=== PATIENT | female | born 1925 | race Caucasian/White ===

== ENCOUNTER → 2017-02-04 | Outpatient (CLI) | payer MEDICARE, BC ==
[~2017-02-04] MED LIST: ACETAMINOPHEN PO; AMIODARONE HCL200 MG PO; AMIODARONE PO; ASPIRIN; ASPIRIN PO; ATENOLOL; ATENOLOL PO; ATIVAN; ATIVAN PO; CALCIUM 600 + D; CALCIUM PO; COZAAR100 MG PO; GLYCOLAX PO; HYDROCHLOROTHIA25 MG PO; HYZAAR 100-25 T1 TAB; HYZAAR 100-25 T1 TAB PO; K-DUR20 ME2 PO; LASIX PO; LEVOTHROID25 MCG PO; LEVOTHYROXINE25 MCG PO; LOPRESSOR PO; LORAZEPAM1 MG PO; METOPROLOL SUCC50 MG PO; METOPROLOL TAR25 MG PO; MIRALAX17 GM PO; MOBIC PO; MULTI-VITAMIN1 TAB PO; NEXIUM PO; NITROGYLCERIN; NITROGYLCERIN SUBLINGUAL; NORVASC; NORVASC PO; PLAVIX PO; PROTONIX PO; SYNTHROID; SYNTHROID PO; TAMBOCAR PO; TYLENOL EXT.STRENGTH PO; VIT D PO; VIT E; VIT E PO; ZOCOR20 MG PO; [UNRECOGNIZED DRUG - OTHER] PO
--- NOTE | ~2017-02-04 | MY11 ---
[facility] A Service of [facility] RADIOLOGY TEXT RESULTS PATIENT: DIANE ORDONEZ LOCATION: [facility] : [birth year] UNIT #: [id number] AGE: [address]: SILVER SALCIDO DO SEX: F ORDER DR: [id number] [facility] [address]. [place], [place] [address] [id number] O MR#: [id number] Acc #: [id number] NAME: DIANE ORDONEZ. : 1925 SEX: F STUDY DATE/TIME: 02/04/2017 13:04 UNIT: [facility] ROOM: STUDY DESCRIPTION: MY Mammogram Screening Dig Jesus Attending Physician: Silver Salcido D.O. Referring Physician: Silver Salcido D.O. Ordering Physician: Silver Salcido D.O. Primary Care Physician: Silver Salcido D.O. MEDICAL IMAGING REPORT This report is preliminary unless electronic signature is present EXAM Bilateral digital screening mammogram with CAD, 02/04/2017 HISTORY 89-year-old female with history of right breast biopsy in 1967. No documented personal or family history of breast cancer or current complaints. COMPARISON Bilateral screening mammogram 01/31/2016, 02/09/2015, 02/07/2014. FINDINGS CC and MLO views were obtained of each breast utilizing digital technique and reviewed with an FDA-approved CAD device. Heterogeneously dense fibroglandular tissue is present bilaterally which can limit sensitivity of mammography. There is asymmetric lobulated soft tissue thickening or skin thickening in the subareolar left breast slightly superolateral in location measuring nearly 4.5 x 3.5 cm in extent on the CC view. The area of involvement appears to have increased when compared to more remote studies dating back to 2011 where it measured about 4.2 x 2.3 cm. Benign vascular calcifications and round calcifications are present bilaterally. No architectural distortion is seen. IMPRESSION There is abnormal parenchymal density or skin thickening in the subareolar left breast which appears to have gradually slightly increased in comparison to more remote studies dating back to 2011. Spot compression views in the CC and MLO plane along with diagnostic left breast ultrasound would be recommended for further evaluation. Patients over the age of 40 are entered into a reminder system with target STS. [facility] A Service of [facility] RADIOLOGY TEXT RESULTS PATIENT: DIANE ORDONEZ LOCATION: [facility] : [birth year] UNIT #: [id number] AGE: [address]: SILVER SALCIDO DO SEX: F ORDER DR: due date for the next mammogram. A result letter will also be sent to the patient. BIRADS 0 Incomplete: Need Additional Imaging Evaluation and/or Prior Mammograms for Comparison Dictated by... Rosa Maria Roa M.D. THIS IS AN ELECTRONICALLY VERIFIED REPORT Rosa Maria Roa M.D. at 02/05/2017 7:04 AM Blayne TD: 02/04/2017 15:12 JOB #: [id number] MEDICAL IMAGING REPORT Page 1 of 1 COPY
== END | disposition home or self-care (01) ==
LOC: CWCC 12:27
DX: Z12.31 Encounter for screening mammogram for malignant neoplasm of breast (principal); R92.8 Other abnormal and inconclusive findings on diagnostic imaging of breast
CPT/HCPCS: G0202

== ENCOUNTER → 2017-02-24 | Outpatient (CLI) | payer MEDICARE, BC ==
--- NOTE | ~2017-02-24 | US24 ---
[facility] A Service of [facility] RADIOLOGY TEXT RESULTS PATIENT: DIANE ORDONEZ LOCATION: [facility] : [birth year] UNIT #: [id number] AGE: [address]: SILVER SALCIDO DO SEX: F ORDER DR: [id number] [place] [id number] [facility]. [place], [place] [address] [id number] O MR#: [id number] Acc #: [id number] NAME: DIANE ORDONEZ. : 1925 SEX: F STUDY DATE/TIME: 02/24/2017 12:59 UNIT: [facility] ROOM: STUDY DESCRIPTION: US Breast Unilateral Attending Physician: Silver Salcido D.O. Referring Physician: Silver Salcido D.O. Ordering Physician: Silver Salcido D.O. Primary Care Physician: Silver Salcido D.O. MEDICAL IMAGING REPORT This report is preliminary unless electronic signature is present EXAM Targeted ultrasound left breast 02/24/2017 Please see the report from the diagnostic mammogram same date for this dictation. BIRADS: 2 - benign findings Dictated by... Hugh Ireland M.D. THIS IS AN ELECTRONICALLY VERIFIED REPORT Hugh Ierland M.D. at 02/24/2017 5:26 PM Annabel TD: 02/24/2017 14:09 JOB #: [id number] MEDICAL IMAGING REPORT Page 1 of 1 COPY
--- NOTE | ~2017-02-24 | MY7 ---
[facility] A Service of [facility] & [facility] RADIOLOGY TEXT RESULTS PATIENT: DIANE ORDONEZ LOCATION: [facility] : [birth year] UNIT #: [id number] AGE: [address]: SILVER SALCIDO DO SEX: F ORDER DR: [id number] [facility] [address] [place], [place] [address] [id number] O MR#: [id number] Acc #: [id number] NAME: DIANE ORDONEZ. : 1925 SEX: F STUDY DATE/TIME: 02/24/2017 12:24 UNIT: [facility] ROOM: STUDY DESCRIPTION: MY Mammogram Dx Dig Lt Attending Physician: Silver Salcido D.O. Referring Physician: Silver Salcido D.O. Ordering Physician: Silver Salcido D.O. Primary Care Physician: Silver Salcido D.O. MEDICAL IMAGING REPORT This report is preliminary unless electronic signature is present EXAM Unilateral left digital diagnostic mammogram and targeted left breast ultrasound 02/24/2017 INDICATION 89-year-old female recalled for an abnormal screening mammogram performed 02/04/2017. Increasing subareolar density in the left breast and possible skin thickening on the left. TECHNIQUE Compression CC, compression MLO and true lateral views of the left breast were obtained and reviewed with an FDA-approved CAD device. Thereafter targeted ultrasound of the subareolar left breast was performed. COMPARISON Mammograms 02/04/2017, 01/31/2016, 02/09/2015, 02/07/2014 and prior studies dating back to 2006. FINDINGS The asymmetric subareolar parenchymal density in the left breast persists on the spot compression CC view and measures up to about 3.5 cm. It is less conspicuous on spot MLO and true lateral views appearing to fade into background parenchyma particularly on the true lateral view. Although this area appears more conspicuous on the recent screening study from 02/04/2017, subareolar density in the left breast has been present on multiple prior mammograms dating back to 2006 and although it appears more conspicuous on the most recent screening study the fact it has been present for a decade it is most indicative of a benign etiology. There are no new suspicious microcalcifications. No distinct nipple retraction. Ultrasound was thereafter performed. ULTRASOUND LEFT BREAST: The patient was initially scanned independently by [facility]. [facility] A Service of [facility] & [facility] RADIOLOGY TEXT RESULTS PATIENT: DIANE ORDONEZ LOCATION: [facility] : [birth year] UNIT #: [id number] AGE: [address]: SILVER SALCIDO DO SEX: F ORDER DR: the technologist and then rescanned in my presence. Limited physical exam (with patient consent) was also performed by myself and demonstrates no readily palpable mass. Mild prominence of the breast tissue in the 4-5 o'clock region of the periareolar left breast was noted on exam but no well-defined nodule or lump was identified. Ultrasound of the subareolar left breast was performed and demonstrates an area of oval shaped prominent breast tissue in the subareolar region at about 4-5 o'clock measuring approximately 4.1 x 0.7 x 3.8 cm. There is no associated posterior acoustical shadowing or internal color-flow or other suspicious feature on ultrasound and this area is wider than tall. This is favored to represent benign subareolar breast tissue but is otherwise nonspecific. Given imaging features on both ultrasound and mammography over the past 10 years, this is favored to be benign and a followup mammogram in 6 months is recommended to document expected stability. If clinically desired or warranted, this area could be assessed with ultrasound-guided core biopsy but given imaging findings over the past decade and patient age this is felt to most likely be benign. Findings and recommendations were discussed with the patient. She has voiced understanding and agreement. IMPRESSION Mammography, ultrasound, and physical exam findings of the left breast are probably benign, most likely reflecting prominent benign subareolar breast tissue on the left. Given relative imaging stability and imaging features based on prior mammograms over the past 10 years and imaging findings today, short-term followup ultrasound and mammogram in 6 months is recommended to document expected stability. No new suspicious calcifications or focal suspicious mass on physical exam. Although imaging findings are felt to be probably benign, if clinically desired or warranted, ultrasound-guided core biopsy could be performed for further assessment. Based on patient age and imaging features however a benign process is favored. See discussion above. Patients over the age of 40 are entered into a reminder system with target due date for the next mammogram. A result letter will also be sent to the patient. BIRADS: 3 Probably benign finding; short interval followup suggested Dictated by... Hugh Ireland M.D. THIS IS AN ELECTRONICALLY VERIFIED REPORT Hugh Ireland M.D. at 02/24/2017 5:26 PM LILY/jose luis TD: 02/24/2017 14:16 JOB #: [id number] [facility]. [facility] A Service of [facility] & [facility] RADIOLOGY TEXT RESULTS PATIENT: DIANE ORDONEZ [id number] : [birth year] UNIT #: [id number] AGE: [address]: SILVER SALCIDO DO SEX: F ORDER DR: MEDICAL IMAGING REPORT Page 1 of 1 COPY
== END | disposition home or self-care (01) ==
LOC: CMAM 12:02
DX: R92.8 Other abnormal and inconclusive findings on diagnostic imaging of breast (principal)
CPT/HCPCS: 76641; G0206

== ENCOUNTER → 2017-03-25 | Day surgery (SDC) | payer MEDICARE, BC ==
--- NOTE | ~2017-03-25 | US200 ---
[facility] A Service of [facility] RADIOLOGY TEXT RESULTS PATIENT: DIANE ORDONEZ [id number] [birth year] UNIT #: [id number] AGE: [address]: SILVER SALCIDO DO SEX: F ORDER DR: [id number] [address] [address] [id number] O MR#: [id number] Acc #: [id number] NAME: DIANE ORDONEZ. : 1925 SEX: F STUDY DATE/TIME: 03/25/2017 11:51 UNIT: [facility] ROOM: STUDY DESCRIPTION: US Breast Guided Bx 1st Lesion Attending Physician: Silver Salcido D.O. Referring Physician: Silver Salcido D.O. Ordering Physician: Silver Salcido D.O. Primary Care Physician: Sliver Salcido D.O. MEDICAL IMAGING REPORT This report is preliminary unless electronic signature is present REVISED REPORT SEE ADDENDUM EXAM Ultrasound guided core biopsy. INDICATIONS Abnormal density in the tissue seen on mammography and ultrasound of the left retroareolar region. TECHNIQUE Informed consent was obtained and after sterile preparation, local anesthesia, I obtained two 14-gauge core samples from the hypoechoic tissue in the subcutaneous region behind the left areola. Marker clip was placed in the lesion. Patient tolerated the procedure well. Post-procedure mammogram showed the clip in good position. IMPRESSION Successful 14-gauge core sampling of dense tissue in the retroareolar region of the left breast. Pathology report is pending. Dictated by... Niall Lindquist M.D. THIS IS AN ELECTRONICALLY VERIFIED REPORT Niall Lindquist M.D. at 03/26/2017 7:05 AM RACHEL/johnna TD: 03/25/2017 18:34 JOB #: [id number] [facility] A Service of [facility] RADIOLOGY TEXT RESULTS PATIENT: DIANE ORDONEZ LOCATION: [facility] #: [id number] : [birth year] UNIT #: [id number] AGE: [address]: SILVER SALCIDO DO SEX: F ORDER DR: ADDENDUM The Pathology report has been returned. It shows hyalinized fibrotic tissue containing only rare ductal epithelial element. There is no malignancy. Dictated by... Niall Lindquist M.D. THIS IS AN ELECTRONICALLY VERIFIED REPORT Niall Lindquist M.D. at 04/02/2017 1:58 PM RACHEL/tracie TD: 04/01/2017 16:05 JOB #: [id number] CC: Maryann/jey Please Delete MEDICAL IMAGING REPORT Page 1 of 1 COPY
== END | disposition home or self-care (01) ==
LOC: CWCC 11:20
DX: N63 Unspecified lump in breast (principal); R63.4 Abnormal weight loss
CPT/HCPCS: 88305; G0204

== ENCOUNTER 2017-04-12 11:52 | Observation (INO) | payer MEDICARE, BC ==
--- NOTE | ~2017-04-12 | EKG ---
PATIENT: DIANE ORDONEZ UNIT #: [id number] Ventricular Rate: 98 BPM Atrial Rate: 66 BPM QRS Duration: 198 ms Q-T Interval: 456 ms QTC Calculation(Bezet): 582 ms Calculated R Blachly: -74 degrees Calculated T Blachly: 99 degrees Diagnosis Line: Ventricular-paced rhythm Diagnosis Line: Abnormal ECG Diagnosis Line: When compared with ECG of 28-JAN-2012 12:58, Diagnosis Line: rate faster Diagnosis Line: Confirmed by SUSAN FINLEY MD ([id number]) on Diagnosis Line: 04/12/2017 7:16:38 PM INTERPRETING MD: ALF
--- NOTE | ~2017-04-12 | HP ---
Unit #: [id number] #: [id number] Patient: DIANE ORDONEZ [id number] [facility]. [address] [place], [place] [address] [id number] I MR#: [id number] NAME: DIANE ORDONEZ. ROOM: 548 Age: 89 Sex: F Admission Date: 04/13/2017 : 1925 Attending Physician: Ayan Milligan M.D. Primary Care Physician: Moreno Salcido D.O. HISTORY AND PHYSICAL HISTORY OF PRESENT ILLNESS This is an 89-year-old white female, known to Dr. Gilbert, with a past medical history of coronary artery disease status post PCI and drug-eluting stent to the mid and proximal LAD in January 2012. The patient's ejection fraction was mildly low at that time at 45%. Additional past medical history includes sick sinus syndrome with a permanent pacemaker status post revision in 2011, atrial fibrillation/atrial flutter, hypertension, diabetes mellitus type 2, obesity, hypothyroidism, GERD and history of anemia with GI bleed. The patient is not on long-term anticoagulation for atrial fibrillation or atrial flutter due to GI bleeding. She is a nonsmoker. She presented to the emergency department with complaints of chest pain and left arm pain for the last couple of days. The pain is located in the midsternal chest. It is described as an aching pain. There is some radiation to the left arm. There is no radiation to the back or jaw. She has had no nausea, vomiting or diaphoresis but has been short of breath. She had an episode of shortness of breath once, but it resolved. The chest pain has been intermittent. There are no aggravating or alleviating factors. She denies palpitations or lower extremity edema. She was lightheaded 2 nights ago, but it resolved. She states that she has been compliant with her medications. She follows with Dr. Gilbert on an annual basis. In the emergency department her pulse was 107, respirations 18, blood pressure 136/103 and O2 saturation 100% on room air. Initial cardiac enzymes were negative. EKG revealed a ventricular paced rhythm with, what appeared to be underlying atrial fibrillation. Renal function and electrolytes were normal. Chest x-ray revealed density in the bilateral lungs, questionably from bibasilar infiltrates. There are no reports of fever, chills or a cough. White blood cell count is normal at 5. She was admitted for chest pain. Upon exam, she is resting comfortably and denies any active complaints. PAST MEDICAL HISTORY 1. Coronary artery disease status post cardiac catheterization 01/28/2012, which revealed left main normal, left circumflex congenitally small but normal, LAD before first septal news operations manager 90%, mid LAD 90% followed by 75%, mid right coronary artery 20% to 30%, ejection fraction 45%. Status post PCI and drug-eluting stent in the mid and proximal LAD. 2. Sick sinus syndrome status post permanent pacemaker with revision in January 2012. 3. Atrial fibrillation/atrial flutter, likely permanent. No long-term Unit #: [id number] #: [id number] Patient: DIANE ORDONEZ anticoagulation due to GI bleed. 4. Hypothyroidism. 5. Hypertension. 6. Diabetes mellitus type 2. 7. GERD. 8. Obesity. 9. History of GI bleed. 10. Nonsmoker. PAST SURGICAL HISTORY 1. Skin cancer removal. 2. Cataract extraction. 3. Appendectomy. 4. Hysterectomy. 5. Breast cyst removal. 6. Cholecystectomy. 7. Colon resection, no malignancy reported. 8. Shoulder surgery. 9. Back surgery. 10. Permanent pacemaker with revision. 11. Cardiac catheterization. HOME MEDICATIONS 1. Nitroglycerin 0.4 mg sublingual p.r.n. chest pain. 2. Levothyroxine 0.025 mg p.o. daily. 3. Cozaar 100 mg p.o. at bedtime. 4. Plavix 75 mg p.o. daily. 5. Protonix 40 mg p.o. daily. 6. Amiodarone 200 mg p.o. daily. 7. Lorazepam 1 mg p.o. at bedtime. 8. Norvasc 5 mg p.o. daily. 9. Metoprolol succinate 50 mg p.o. b.i.d. 10. MiraLAX 17 grams p.o. daily. 11. Zocor 20 mg p.o. at bedtime. 12. Lasix 20 mg p.o. daily. ALLERGIES No known drug allergies. SOCIAL HISTORY The patient lives in a private residence. Her recently in July 2016, and she now lives alone. She uses a walker to ambulate. Her daughter lives close by and checks on her frequently. She is a nonsmoker. There are no reports of alcohol or illicit drug use. FAMILY HISTORY Noncontributory due to age. REVIEW OF SYSTEMS A 10-point review of systems is negative except for details noted above in HPI. PHYSICAL EXAMINATION VITAL SIGNS: Temperature 97.7, pulse 99, blood pressure 112/59. CONSTITUTIONAL: This is an 89-year-old white female in no acute distress. SKIN: Warm and dry. NECK: Supple. No jugular vein distention. No hepatojugular reflux. Normal carotid upstrokes. No carotid bruits auscultated. Unit #: [id number] #: [id number] Patient: DIANE ORDONEZ HEART: S1, S2. Irregularly irregular. No murmurs, rubs or gallops. LUNGS: Bilateral breath sounds have good air entry throughout all lung tavares. Respirations are even and nonlabored. No rales, rhonchi or wheezes. ABDOMEN: Soft, nontender, nondistended. Positive bowel sounds auscultated x4 quadrants. No ascites noted. EXTREMITIES: Bilateral lower extremities have trace pretibial pitting edema. DP and PT pulses are 2+. Capillary refill less than 3 seconds. DIAGNOSTIC STUDIES LABORATORY: White blood cell count 5, hemoglobin 14.5, hematocrit 44.1, platelets 168. Sodium 131, potassium 4.4, chloride 99, CO2 24, BUN 16, creatinine 1, glucose 118. Troponin 0.03 and 0.03. INR 1.1. IMAGING: Chest x-ray revealed vague densities in bilateral lungs with questionable bibasilar infiltrates. CARDIOVASCULAR: Electrocardiogram reveals ventricular paced rhythm with, what appears to be, underlying atrial fibrillation. IMPRESSION 1. Chest pain with questionable etiology. 2. Coronary artery disease with history of PCI and drug-eluting stent to the mid and proximal LAD in January 2012. 3. History of sick sinus syndrome/permanent pacemaker. 4. Atrial flutter/atrial fibrillation, likely permanent, not on anticoagulation secondary to GI bleed. 5. Hypertension. 6. Diabetes mellitus type 2. 7. Hypothyroidism. 8. History of anemia and GI bleed. PLAN 1. The patient presented to the hospital with complaints of chest pain. She was admitted for further observation. 2. Serial cardiac enzymes are negative, and she has ruled out for myocardial infarction. 3. The patient was advised to undergo ischemic workup versus consideration of medical management. She has opted for medical management. 4. Two-D echocardiogram will be ordered to reassess LV function and valves. 5. PT/OT will be consulted. 6. The patient will be ambulated with assistance. If there is no recurrence of chest pain, she can be discharged home and can follow up with Dr. Gilbert. 7. If chest pain recurs, she should be considered for a cardiac catheterization as an outpatient. 8. The patient's EKG does reveal underlying atrial fibrillation. Will discontinue amiodarone but continue beta-brenda. She is also on an ARB, calcium channel blockers, statin, Plavix and low dose diuretic. No anticoagulation is ordered due to history of GI bleed. Dictated by Priscilla Posey APRN for Beverley Bill M.D. Unit #: [id number] #: [id number] Patient: DIANE ORDONEZ JULIETH/monica TD: 04/13/2017 14:13 JOB #: [id number] HISTORY AND PHYSICAL Page 1 of 1 X X HISTORY AND PHYSICAL
--- NOTE | ~2017-04-12 | CR72 ---
[facility] A Service of [facility] RADIOLOGY TEXT RESULTS PATIENT: DIANE ORDONEZ LOCATION: [place] [address] : [birth year] UNIT #: [id number] AGE: [address]: Ayan Milligan MD SEX: F ORDER DR: [id number] [facility] [address]. [place], [place] [address] [id number] E MR#: [id number] Acc #: [id number] NAME: DIANE ORDONEZ. : 1925 SEX: F STUDY DATE/TIME: 04/12/2017 12:17 UNIT: [facility] ROOM: STUDY DESCRIPTION: CR Chest Single View Portable Ordering Physician: Er [facility]icians Primary Care Physician: Moreno Salcido D.O. MEDICAL IMAGING REPORT This report is preliminary unless electronic signature is present EXAM Portable chest INDICATIONS Chest pain radiating to left arm. Shortness of breath since Thursday. COMPARISON STUDIES Comparison with 10/16/2009. FINDINGS There are hazy densities in the lung bases which may reflect vague infiltrates. Heart size is probably within normal limits for technique. Atherosclerotic calcification aorta. Right-sided pacemaker with old left-sided pacemaker leads. IMPRESSION Vague densities in the regions of both lung bases may represent vague bibasilar infiltrates. Correlate with any symptoms. Dictated by... Darien Rae M.D. THIS IS AN ELECTRONICALLY VERIFIED REPORT Darien Rae M.D. at 04/13/2017 7:51 AM ARS/pcl TD: 04/12/2017 15:21 JOB #: [id number] MEDICAL IMAGING REPORT Page 1 of 1 COPY
[~2017-04-12 11:52] MED LIST changes: -AMIODARONE HCL200 MG PO; -AMIODARONE PO; -K-DUR20 ME2 PO; -LASIX PO; -LORAZEPAM1 MG PO; -METOPROLOL SUCC50 MG PO; -MIRALAX17 GM PO; -NITROGYLCERIN SUBLINGUAL; -PLAVIX PO; -PROTONIX PO
[2017-04-12 12:47] LABS: BASOPHIL% 0.8 % (0-2.5); EOSINOPHIL% 0.7 % (0.0-7.0); HEMATOCRIT 44.1 % (35.0-45.0); HEMOGLOBIN 14.5 gm/dL (12.0-16.0); LYMPHOCYTE% 18.9 % (17.0-45.0); MEAN CELL VOLUME 93.4 FL (83-96); MEAN CORPUSCULAR HEMOGLOBIN 30.6 PG (28-34); MEAN CORPUSCULAR HGB CONC 32.8 g/dL (30-36); MONOCYTE# 0.8 X10e3 (0-1.0); MONOCYTE% 14.9 % (3.0-12.0); NEUTROPHIL# 3.3 X10e3 (1.5-7.1); NEUTROPHIL% 64.7 % (40-75); PLATELET COUNT 168 X10e3 (140-420); RED BLOOD COUNT 4.73 X10e (3.90-5.30); RED CELL DISTRIBUTION WIDTH 14.6 % (11.0-15.5)
[2017-04-12 12:49] LABS: DIFF IND NO
[2017-04-12 13:03] LABS: INR 1.1; PARTIAL THROMBOPLASTIN TIME 24.6 SECONDS (23.5-31.3); PROTHROMBIN TIME (PATIENT) 11.6 SECONDS (10.0-11.7)
[2017-04-12 13:09] LABS: GLOM FILT RATE Estimated 49.9 mL/min (>60); POTASSIUM 4.4 mmol/L (3.5-5.1)
[2017-04-12 13:11] LABS: POC - CKMB <1.0 ng/mL (0.0-7.9); POC - TROPONIN <0.05 ng/mL (<=0.05)
[2017-04-12 14:30] LABS: POC - CKMB <1.0 ng/mL (0.0-7.9); POC - TROPONIN <0.05 ng/mL (<=0.05)
[2017-04-12] MEDS ORDERED: NITROGYLCERIN SUBLINGUAL (19:24)
[2017-04-12] MEDS ORDERED: SYNTHROID PO (19:24)
[2017-04-12] MEDS ORDERED: COZAAR100 MG PO (19:27)
[2017-04-12] MEDS ORDERED: ZOCOR20 MG PO (19:28)
[2017-04-12] MEDS ORDERED: PROTONIX PO (19:28)
[2017-04-12] MEDS ORDERED: METOPROLOL SUCC50 MG PO (19:28)
[2017-04-12] MEDS ORDERED: PLAVIX PO (19:28)
[2017-04-12] MEDS ORDERED: MIRALAX17 GM PO (19:28)
[2017-04-12] MEDS ORDERED: NORVASC PO (19:29)
[2017-04-12] MEDS ORDERED: AMIODARONE PO (19:38)
[2017-04-12] MEDS ORDERED: LORAZEPAM1 MG PO (19:38)
[2017-04-12] MEDS ORDERED: LASIX PO (19:39)
[2017-04-12 20:28] LABS: CK TOTAL 41 IU/L (26-140)
[2017-04-13 03:14] LABS: CK TOTAL 39 IU/L (26-140)
[2017-04-13 10:25] LABS: CHOLESTEROL 121 mg/dL (0-200); HDL CHOLESTEROL 55 mg/dL (35-95); LDL CHOLESTEROL 51 mg/dL (-130); LDL/HDL RATIO 1 RATIO (0-4); TRIGLYCERIDES 74 mg/dL (10-160)
[2017-04-13] MEDS ORDERED: K-DUR20 ME2 PO (14:36)
== END 2017-04-13 18:07 | disposition home or self-care (01) ==
LOC: CED 11:52 → CEDOF 15:20 → C5B 15:41 → CEDOF 15:41 → CED 15:41 → C5B 16:17 → CEDOF 16:17 → C5B 04-13 18:07
PROVIDERS: Emergency Medicine; Internal Medicine Cardiovascular Disease
DX: R07.9 Chest pain, unspecified (principal); I25.10 Atherosclerotic heart disease of native coronary artery without angina pectoris; Z95.5 Presence of coronary angioplasty implant and graft; Z95.0 Presence of cardiac pacemaker; I48.91 Unspecified atrial fibrillation; I10 Essential (primary) hypertension; E11.9 Type 2 diabetes mellitus without complications; E03.9 Hypothyroidism, unspecified; I08.8 Other rheumatic multiple valve diseases; Z85.828 Personal history of other malignant neoplasm of skin; Z79.02 Long term (current) use of antithrombotics/antiplatelets
CPT/HCPCS: 36415; 71010; 80048; 80061; 82550; 82553; 83880; 84443; 84484; 85025; 85610; 85730; 93005; 93306; 97166; 99285; G0378; G8987-GO; G8988-GO; G8989-GO

== ENCOUNTER 2017-05-13 07:28 | Inpatient (IN) | payer OTHER, MEDICARE, BC ==
[~2017-05-13] VITALS: Ht 167.6 cm; Wt 63.1 kg
--- NOTE | ~2017-05-13 | HP ---
Unit #: [id number] #: [id number] Patient: DIANE NELSON [id number] [address] [place], [place] [address] [id number] MR#: [id number] NAME: DIANE NELSON ROOM: Age: 89 Sex: F Admission Date: 05/13/2017 : 1925 Attending Physician: Ilya Martines M.D. Primary Care Physician: Moreno Salcido D.O. HISTORY AND PHYSICAL HISTORY OF PRESENT ILLNESS This is an 89-year-old white female who has known coronary artery disease, had 2 stents placed back in 2011 in the proximal and mid LAD, has a permanent pacemaker, history of paroxysmal atrial fibrillation, hypertension, diabetes mellitus, hypothyroidism and an EF of 20% to 25% with otwb-um-qwzrjipc mitral regurgitation and tricuspid regurgitation. She came to the emergency room with chest pain and left arm and shoulder pain. According to the patient, she saw Dr. Gilbert in the office yesterday. She was feeling and doing fine. She also reports, and it is on the record, that she was here about a month ago with similar symptoms. At that time, during evaluation she ruled out for any acute coronary syndrome, and her medications were adjusted, and she was treated medically. As mentioned by the patient regarding her discussion with Dr. Gilbert yesterday, if she had any more chest pain, she would need to really consider a cardiac catheterization, and if she had any more chest pain, to come to the emergency room. She said that she was just sitting and watching television and started having the pain in her left arm. She says it started in the shoulder and radiated all the way down the arm to the elbow. She said it was aching and then she started having midsternal chest. She described it as like a stabbing, pushing pressure. She said it was waxing and waning at first, but then it persisted. She ended up taking a total of 3 sublingual nitroglycerin as directed. She said the pain still reoccurred. She called her daughter who came over this morning and then brought her in to the emergency room for further evaluation and management. The patient states that the pain eventually did ease off to a level that she can tolerate. She was just concerned after talking to Dr. Gilbert yesterday, so she came in for further evaluation. Her initial cardiac enzymes are negative. Her EKG does not show anything acute. Chest x-ray does not show anything active. The patient was given aspirin 325. She will be admitted for further evaluation and management. PAST MEDICAL HISTORY 1. Coronary artery disease. Last cardiac cath in 2011 revealed left main normal, left circumflex congenitally small but normal, LAD before the first septal marine insurance claim examiner 90% stenosis and mid LAD 90% stenosis, followed by 75%. Mid RCA had a 20% to 30% stenosis. Ejection fraction 45%. Status post PCI and drug-eluting stent in the mid and proximal LAD 01/2012. 2. Last two-D echo done 04/13/2017 showed LVEF reduced at 20% to 25%, inferior wall akinesis, pwet-us-svumoact mitral regurgitation, Unit #: [id number] #: [id number] Patient: DIANE NELSON ttpb-dt-xboiwzik tricuspid regurgitation, mild pulmonic regurgitation, elevated RVSP 33 mmHg and small pericardial effusion versus fat tissue. 3. Sick sinus syndrome status post permanent pacemaker with revision in 2011. 4. Paroxysmal atrial fibrillation/flutter - the patient has not been on any long-term anticoagulation due to GI bleeding. 5. Hypothyroidism. 6. Hypertension. 7. Diabetes mellitus type 2. 8. GERD. 9. Ambulates with a walker. 10. History of GI bleed. 11. Nonsmoker. PAST SURGICAL HISTORY 1. Status post PCI and stents placed in the mid and proximal LAD back in 2011. 2. Permanent pacemaker with revision. 3. Skin cancer removal. 4. Cataract extraction. 5. Appendectomy. 6. Hysterectomy. 7. Breast cyst removal. 8. Cholecystectomy. 9. Colon resection - No malignancy reported. 10. Shoulder surgery. 11. Back surgery. HOME MEDICATIONS 1. Nitrostat 0.4 mg sublingual p.r.n. chest pain. 2. Synthroid 0.025 mg p.o. daily. 3. Cozaar 100 mg p.o. daily at h.s. 4. Plavix 75 mg p.o. daily. 5. Protonix 40 mg p.o. daily. 6. Lorazepam 1 mg p.o. p.r.n. at bedtime. 7. Norvasc 5 mg p.o. daily p.r.n. elevated blood pressure. 8. Metoprolol 50 mg p.o. b.i.d. 9. MiraLAX 17 grams p.o. daily. 10. Zocor 20 mg p.o. at bedtime. 11. Lasix 20 mg p.o. b.i.d. p.r.n. 12. K-Dur 20 mEq p.o. daily. 13. Amiodarone 200 mg 1 tablet p.o. daily. ALLERGIES No known drug allergies. SOCIAL HISTORY The patient lives in her own home. She lives close to her daughter who helps with her care. She ambulates with a walker. No alcohol, tobacco or illicit drug abuse. FAMILY HISTORY Noncontributory. REVIEW OF SYSTEMS CONSTITUTIONAL: Denies fevers or chills. No recent weight gain or weight loss. Unit #: [id number] #: [id number] Patient: DIANE NELSON HEENT: Denies headache but had dizziness with the chest pain. Denies paroxysmal nocturnal dyspnea or orthopnea. GI: Denies nausea, vomiting, diarrhea or abdominal pain. NEUROLOGIC: No focal weakness. CARDIOVASCULAR: Chest pain present. Denies palpitations. Denies increased lower extremity edema. PHYSICAL EXAMINATION GENERAL: On exam, Ms. Nelson is an 89-year-old white female. No acute respiratory distress. She is awake, alert and oriented. VITAL SIGNS: Blood pressure is 144/84, heart rate 78, respirations 16, temperature 97.1, O2 sats 99% to 100% on room air. NECK: Trachea is midline. No thyromegaly or lymphadenopathy. Normal carotid upstrokes. No jugular venous distention. HEART: S1, S2, regular rate and rhythm. Has pacemaker. LUNGS: Diminished; otherwise, clear. ABDOMEN: Soft, nontender. Positive bowel sounds present. EXTREMITIES: Pedal pulses are palpable. No pedal edema. DIAGNOSTIC STUDIES LABORATORY DIAGNOSTIC DATA: Glucose 113, BUN 21, creatinine 1.2, eGFR 40, sodium 126, potassium 3.9, chloride 94, CO2 25, calcium 8.7, total protein 5.9, albumin 3.6, bili total 0.7, AST 39, ALT 44, alkaline phosphatase 37. WBC is 5.5, hemoglobin 14.1, hematocrit 42.6, platelets 179. Initial cardiac enzymes - CK-MB is less than 1, troponin less than 0.05. INR is 1.1. IMAGING: Chest x-ray, preliminary report does not show anything acute. CARDIOVASCULAR: EKG shows ventricular paced rhythm. Underlying appears to be atrial fibrillation at times. IMPRESSION 1. Chest pain, unstable angina. 2. History of coronary artery disease with previous PCI and drug-eluting stent to the proximal and mid LAD in 2011. 3. History of paroxysmal atrial fibrillation. Has a permanent pacemaker. Not on any chronic anticoagulation due to GI bleed in the past. 4. Hyponatremia. 5. Hypertension. 6. Diabetes mellitus type 2. 7. Hypothyroidism. 8. GERD and constipation. 9. LVEF is 20% to 25% on last echo 03/2017. Also showed bevv-yi-uppszmuh mitral regurgitation and tricuspid regurgitation. PLAN 1. Patient is being admitted to further evaluate ischemic heart disease. Plans are to have a heart catheterization tomorrow by Dr. Gilbert to evaluate and possibly will need PCI. Discussed with the patient the risks and benefits, including risk of bleeding, myocardial infarction, stroke and even . 2. The patient verbalizes understanding and agrees to proceed. 3. Continue the patient on beta-brenda and nitrate, aspirin, Plavix and Metoprolol. The patient is also on amiodarone to maintain normal sinus rhythm. Will increase amiodarone to 200 mg p.o. b.i.d. x7 days and then decrease back down to the maintenance dose of 200 mg daily to maintain normal sinus rhythm. On the monitoring specialist, it Unit #: [id number] #: [id number] Patient: NELSONDIANE M appears the patient is having episodes of paroxysmal atrial fibrillation but is in sinus rhythm at times under the V paced. 4. Had a recent fasting lipid profile last month here, and she is on a statin. Her cholesterol is 121, triglycerides 74, LDL 51 and HDL 55. Also TSH was done at that time and was 3.85. 5. On exam, there are no signs or symptoms of acute congestive heart failure. 6. Further recommendations pending the heart catheterization. Patient is on an ARB for her cardiomyopathy. 7. Nitro paste has been added to the patient's regimen. 8. The patient's hyponatremia will be monitored. Will do labs in the morning. She is on Lasix and Cozaar, so will decrease the dose of Lasix to once a day. Dictated by Una Shine A.P.R.N. for Sina Chaudhary/monica TD: 05/13/2017 11:59 JOB #: [id number] HISTORY AND PHYSICAL Page 1 of 1 X Una Shine APRN X HISTORY AND PHYSICAL
--- NOTE | ~2017-05-13 | EKG ---
PATIENT: DIANE ORDONEZ UNIT #: [id number] Ventricular Rate: 64 BPM Atrial Rate: 64 BPM P-R Interval: 104 ms QRS Duration: 180 ms Q-T Interval: 494 ms QTC Calculation(Bezet): 509 ms Calculated R [place]: -74 degrees Calculated T [place]: 102 degrees Diagnosis Line: Sinus rhythm with short SD Diagnosis Line: Electronic ventricular pacemaker Diagnosis Line: Left axis deviation Diagnosis Line: Abnormal ECG Diagnosis Line: When compared with ECG of 12-APR-2017 12:01, Diagnosis Line: Sinus rhythm has replaced Atrial flutter with 2 to Diagnosis Line: 1 block Diagnosis Line: Vent. rate has decreased BY 34 BPM Diagnosis Line: Confirmed by NEIL PELAEZ, ASHANTI ([id number]) on 05/14/2017 Diagnosis Line: 7:53:14 PM INTERPRETING MD: NEIL PELAEZ
--- NOTE | ~2017-05-13 | EKG ---
PATIENT: DIANE ORDONEZ UNIT #: [id number] Ventricular Rate: 107 BPM Atrial Rate: 107 BPM P-R Interval: 224 ms QRS Duration: 184 ms Q-T Interval: 376 ms QTC Calculation(Bezet): 501 ms Calculated R [place]: -80 degrees Calculated T [place]: 98 degrees Diagnosis Line: Atrial-sensed ventricular-paced rhythm with Diagnosis Line: prolonged AV conduction Diagnosis Line: Possible Atrial flutter with 2 to 1 block Diagnosis Line: Abnormal ECG Diagnosis Line: When compared with ECG of 12-APR-2017 12:01, Diagnosis Line: Vent. rate has increased BY 9 BPM Diagnosis Line: Atrial flutter with 2 to 1 block has replaced Diagnosis Line: Atrial fibrillation Diagnosis Line: Confirmed by ASHANTI TREJO MD ([id number]) on 05/14/2017 Diagnosis Line: 7:52:28 PM INTERPRETING MD: NEIL PELAEZ
--- NOTE | ~2017-05-13 | CR72 ---
[facility] A Service of [facility] & [facility] RADIOLOGY TEXT RESULTS PATIENT: DIANE ORDONEZ LOCATION: [place] [address] : [birth year] UNIT #: [id number] AGE: [address]: Tawanda Gilbert MD SEX: F ORDER DR: [id number] [facility] [address]. [place], [place] [address] [id number] I MR#: [id number] #: [id number] NAME: DIANE ORDONEZ. : 1925 SEX: F STUDY DATE/TIME: 05/13/2017 8:29 UNIT: CEDOF ROOM: 51215 STUDY DESCRIPTION: CR Chest Single View Portable Attending Physician: Tawanda Gilbert M.D. Ordering Physician: Ilya Martines M.D. Primary Care Physician: Moreno Salcido D.O. MEDICAL IMAGING REPORT This report is preliminary unless electronic signature is present EXAM Portable chest. HISTORY 89-year-old female left arm pain, chest pain x1 day. COMPARISON 04/12/2017 FINDINGS Portable view of the chest demonstrates mild diffuse interstitial prominence. It may represent underlying interstitial fibrosis or less likely edema. No focal airspace disease or consolidation. No sizeable effusions. Stable cardiomegaly and mild diffuse aortic atherosclerotic changes. Pacemaker leads noted. Degenerative changes noted over both shoulders with dystrophic calcifications. No pneumothorax. Dictated by... Renetta Rae M.D. THIS IS AN ELECTRONICALLY VERIFIED REPORT Renetta Rae M.D. at 05/14/2017 7:28 AM STEPHANIE/cody TD: 05/13/2017 13:46 JOB #: [id number] MEDICAL IMAGING REPORT Page 1 of 1 COPY
--- NOTE | ~2017-05-13 | EKG ---
PATIENT: DIANE ORDONEZ UNIT #: [id number] Ventricular Rate: 68 BPM Atrial Rate: 69 BPM P-R Interval: 108 ms QRS Duration: 172 ms Q-T Interval: 524 ms QTC Calculation(Bezet): 557 ms Calculated R [place]: -75 degrees Calculated T [place]: 103 degrees Diagnosis Line: Electronic atrial pacemaker Diagnosis Line: Left axis deviation Diagnosis Line: Left bundle branch block Diagnosis Line: Abnormal ECG Diagnosis Line: When compared with ECG of 13-MAY-2017 08:22, Diagnosis Line: (unconfirmed) Diagnosis Line: Electronic atrial pacemaker has replaced Sinus Diagnosis Line: rhythm Diagnosis Line: Confirmed by ASHANTI TREJO MD ([id number]) on 05/14/2017 Diagnosis Line: 7:57:40 PM INTERPRETING MD: NEIL PELAEZ
--- NOTE | ~2017-05-13 | DS ---
Unit #: [id number] #: [id number] Patient: DIANE ORDONEZ [id number] [address] [address] [id number] I MR#: [id number] NAME: DIANE ORDONEZ ROOM: 558 Age: 89 Sex: F Admission Date: 05/13/2017 : 1925 Discharge Date: 05/14/2017 Attending Physician: Tawanda Gilbert M.D. Primary Care Physician: Moreno Salcido D.O. DISCHARGE SUMMARY DISCHARGE DIAGNOSES 1. Unstable angina. 2. Status post cardiac cath performed by Dr. Gilbert on May 14, 2017, showed: A. Left ventricle normal. B. Left main normal. C. Left anterior descending stents patent. D. Left circumflex normal. E. Right coronary artery 20% to 30% stenosis, stent in the mid and distal left anterior descending coronary artery widely patent. 3. Paroxysmal atrial fibrillation - not on anticoagulation because of history of gastrointestinal bleed in the past. 4. Permanent pacemaker for sick sinus syndrome. 5. Hypertension. 6. Hyponatremia. 7. Diabetes mellitus type 2. 8. Hypothyroidism. 9. Gastroesophageal reflux disease. 10. Left ventricular ejection fraction of 20% to 25% on last echo, April 13, 2017, with nlqn-xi-hueifvef mitral regurgitation, llan-mb-szfyjcbr tricuspid regurgitation, with elevated right ventricular systolic pressure 33 mmHg. DISCHARGE MEDICATIONS 1. Amiodarone 200 mg p.o. twice daily x1 month then decrease down to 200 mg daily. 2. Lorazepam 1 mg p.o. at bedtime p.r.n. for anxiety. 3. Norvasc 5 mg p.o. daily. 4. Metoprolol succinate 50 mg p.o. twice daily. 5. MiraLax 17 p.o. daily. 6. Lasix 20 mg p.o. twice daily. 7. Zocor 20 mg p.o. at bedtime. 8. Cozaar 100 mg p.o. at bedtime. 9. Plavix 75 mg p.o. daily. 10. Protonix 40 mg p.o. daily. 11. K-Dur 20 mEq p.o. daily. 12. Synthroid 0.025 mg p.o. daily. 13. Nitrostat 0.4 mg sublingual p.r.n. for chest pain. HOSPITAL COURSE This is an 89-year-old white female who is well known to Dr. Gilbert, he had just seen earlier this week in the office. She has a history of coronary artery disease and she came into the emergency room after having a recurrent episode of chest pain along with radiation into the left arm. Unit #: [id number] #: [id number] Patient: DIANE ORDONEZ She also had some slight shortness of breath. She had been taking some Nitrostat at home, which had some minimal relief. She also had admission back in March, about a month ago, with similar symptoms and it was decided then to try medical management and change her medication. Since she was having recurrent chest pain and was suspicious of worsening coronary artery disease, a cardiac cath was planned and performed. All her cardiac enzymes remained negative. Her EKG does not show anything acute. She has a pacemaker. Cardiac cath today showed a LV EF of about 50% to 55% with evidence of an old inferior wall [place]. No significant fixed coronary artery stenosis seen. Stents in the proximal to mid LAD, mid RCA, and distal RCA were widely patent. With these findings, Dr. Gilbert will adjust her medications accordingly. It also was noticed on this admission and on her last pacemaker evaluation interrogation that she has had some runs of atrial fibrillation. It was also reported in the past that she does not want to take any anticoagulation because of a severe GI bleed in the past and due to her advanced age. The patient would prefer not to be on anticoagulation if possible, so our goal is to try to maintain normal sinus rhythm. Will send the patient home on loading doses of amiodarone 200 mg p.o. twice daily for one month and then will decrease the dose down to 200 mg daily to maintain normal sinus rhythm. She is also on a beta brenda. The patient will continue on the Plavix and aspirin at this time. On exam, there are no signs or symptoms of acute congestive heart failure. The patient had a cath via the right wrist and her site is without oozing, hematoma, or thrill. The patient will be discharged home today in stable condition. PHYSICAL EXAMINATION On day of discharge: VITAL SIGNS: Blood pressure is 138/57, heart rate 60, respirations 18, temperature 98.2, O2 saturations 95% on room air. HEART: S1, S2. Regular rate and rhythm. LUNGS: Diminished, otherwise clear. ABDOMEN: Soft, nontender. EXTREMITIES: Pedal pulses are palpable. No pedal edema. DIAGNOSTIC STUDIES LABORATORY: Latest laboratory diagnostic data: Glucose is 103, BUN 17, creatinine 1, eGFR 49.9, sodium 127, potassium 3.7, chloride 95, CO2 of 23, calcium 8.8. Total protein 5.9, albumin 3.6, bilirubin total 0.7, AST 39, ALT 44, alkaline phosphatase 37. BNP on admission was 991. WBC 6.6, hemoglobin 14.4, hematocrit 42.4, platelet count 185,000. Her latest cardiac enzymes: Her CK total is 39 with a troponin of 0.06. CARDIOVASCULAR: EKG shows AV paced, appears to be underlying sinus. PLAN/INSTRUCTIONS 1. The patient will be discharged home today. 2. Instructed to follow up with Dr. Gilbert on Friday, June 23, 2017 at 3 p.m. 3. New prescription given to the patient for amiodarone 200 mg. She will be instructed to take that twice daily for one month and then go down to 200 mg one tablet daily. 4. After conversation with the patient, she is not on anticoagulation because of history of GI bleed. Patient would prefer not to be on anticoagulation, so will try to maintain normal sinus rhythm by increasing the doses of amiodarone for a month and then maintenance dose. Unit #: [id number] #: [id number] Patient: DIANE ORDONEZ 5. The patient is also on a beta brenda to try to maintain normal sinus rhythm. 6. Patient will follow with her PCP in one to two weeks. 7. Further recommendations pending. Dictated by... Una Shine A.P.R.N. for Sina Chaudhary/silverio TD: 05/14/2017 16:44 JOB #: [id number] DISCHARGE SUMMARY Page 1 of 1 X Una Shine APRN DISCHARGE SUMMARY
[~2017-05-13 07:28] MED LIST changes: +AMIODARONE PO; +K-DUR20 ME2 PO; +LASIX PO; +LORAZEPAM1 MG PO; +METOPROLOL SUCC50 MG PO; +MIRALAX17 GM PO; +NITROGYLCERIN SUBLINGUAL; +PLAVIX PO; +PROTONIX PO
[2017-05-13] MEDS ORDERED: AMIODARONE HCL200 MG PO (07:44)
[2017-05-13 08:15] LABS: BASOPHIL% 0.9 % (0-2.5); EOSINOPHIL# 0.1 X10e3 (0-0.7); HEMATOCRIT 42.6 % (35.0-45.0); HEMOGLOBIN 14.1 gm/dL (12.0-16.0); LYMPHOCYTE# 1.6 X10e3 (1.0-3.5); LYMPHOCYTE% 28.6 % (17.0-45.0); MEAN CELL VOLUME 93.2 FL (83-96); MEAN CORPUSCULAR HEMOGLOBIN 30.8 PG (28-34); MEAN PLATELET VOLUME 8.8 FL (6.5-11.5); MONOCYTE# 0.8 X10e3 (0-1.0); MONOCYTE% 14.8 % (3.0-12.0); NEUTROPHIL% 54.7 % (40-75); PLATELET COUNT 179 X10e3 (140-420); RED BLOOD COUNT 4.58 X10e (3.90-5.30); RED CELL DISTRIBUTION WIDTH 14.6 % (11.0-15.5); WHITE BLOOD COUNT 5.5 X10e3 (4.0-10.5)
[2017-05-13 08:24] LABS: DIFF IND NO
[2017-05-13 08:28] LABS: POC - CKMB <1.0 ng/mL (0.0-7.9); POC - TROPONIN <0.05 ng/mL (<=0.05)
[2017-05-13 08:28] LABS: INR 1.1; PARTIAL THROMBOPLASTIN TIME 25.3 SECONDS (23.5-31.3); PROTHROMBIN TIME (PATIENT) 11.5 SECONDS (10.0-11.7)
[2017-05-13 08:40] LABS: ALBUMIN SERUM 3.6 g/dL (3.5-5.0); BILIRUBIN, DIRECT 0.3 mg/dL (0.0-0.2); BILIRUBIN,INDIRECT 0.4 mg/dL (0.0-0.9); BILIRUBIN,TOTAL 0.7 mg/dL (0.2-2.0); BUN/CREATININE RATIO 17.5; CALCIUM SERUM 8.7 mg/dL (8.4-10.2); CREATININE SERUM 1.2 mg/dL (0.6-1.4); POTASSIUM 3.9 mmol/L (3.5-5.1); PROTEIN TOTAL SERUM 5.9 g/dL (6.0-8.3)
[2017-05-13 15:47] LABS: CK TOTAL 37 IU/L (26-140)
[2017-05-13 21:43] LABS: CK TOTAL 39 IU/L (26-140)
[2017-05-14 07:00] LABS: BASOPHIL% 0.4 % (0-2.5); EOSINOPHIL% 0.6 % (0.0-7.0); HEMATOCRIT 42.2 % (35.0-45.0); HEMOGLOBIN 14.2 gm/dL (12.0-16.0); LYMPHOCYTE# 1.3 X10e3 (1.0-3.5); LYMPHOCYTE% 19.4 % (17.0-45.0); MEAN CELL VOLUME 92.1 FL (83-96); MEAN CORPUSCULAR HGB CONC 33.6 g/dL (30-36); MEAN PLATELET VOLUME 8.6 FL (6.5-11.5); MONOCYTE# 0.9 X10e3 (0-1.0); NEUTROPHIL# 4.4 X10e3 (1.5-7.1); NEUTROPHIL% 66.6 % (40-75); PLATELET COUNT 185 X10e3 (140-420); RED BLOOD COUNT 4.59 X10e (3.90-5.30); RED CELL DISTRIBUTION WIDTH 14.5 % (11.0-15.5); WHITE BLOOD COUNT 6.6 X10e3 (4.0-10.5)
[2017-05-14 07:02] LABS: DIFF IND NO
[2017-05-14 07:08] LABS: INR 1.1; PARTIAL THROMBOPLASTIN TIME 25.7 SECONDS (23.5-31.3); PROTHROMBIN TIME (PATIENT) 11.8 SECONDS (10.0-11.7)
[2017-05-14 07:18] LABS: CALCIUM SERUM 8.8 mg/dL (8.4-10.2); GLOM FILT RATE Estimated 49.9 mL/min (>60); POTASSIUM 3.7 mmol/L (3.5-5.1)
== END 2017-05-14 17:30 | disposition home or self-care (01) | DRG 287 ==
LOC: CED 07:28 → CEDOF 11:10 → CED 12:21 → C5B 17:55
PROVIDERS: Emergency Medicine; Internal Medicine Cardiovascular Disease; Nurse Practitioner
PROC: 4A023N7 Measurement of Cardiac Sampling and Pressure, Left Heart, Percutaneous Approach (ICD-10-PCS; principal; 2017-05-14)
PROC: B211YZZ Fluoroscopy of Multiple Coronary Arteries using Other Contrast (ICD-10-PCS; 2017-05-14)
PROC: B215YZZ Fluoroscopy of Left Heart using Other Contrast (ICD-10-PCS; 2017-05-14)
DX: I25.110 Atherosclerotic heart disease of native coronary artery with unstable angina pectoris (principal); I50.22 Chronic systolic (congestive) heart failure; I48.0 Paroxysmal atrial fibrillation; E87.1 Hypo-osmolality and hyponatremia; E11.9 Type 2 diabetes mellitus without complications; Z95.0 Presence of cardiac pacemaker; Z79.84 Long term (current) use of oral hypoglycemic drugs; E03.9 Hypothyroidism, unspecified; K21.9 Gastro-esophageal reflux disease without esophagitis; I08.1 Rheumatic disorders of both mitral and tricuspid valves; Z95.5 Presence of coronary angioplasty implant and graft; Z90.710 Acquired absence of both cervix and uterus; Z90.49 Acquired absence of other specified parts of digestive tract; Z98.49 Cataract extraction status, unspecified eye; I25.2 Old myocardial infarction
CPT/HCPCS: 36415; 71010; 80048; 80076; 82550; 82553; 82947; 83880; 84484; 85025; 85610; 85730; 93005; 99285; C1769; C1887; C1894; J1644; J2250; J3010

== ENCOUNTER → 2017-05-28 | Outpatient (CLI) | payer MEDICARE, BC ==
[~2017-05-28] MED LIST changes: +AMIODARONE HCL200 MG PO
[2017-05-28 12:45] LABS: BUN/CREATININE RATIO 16.36; CALCIUM SERUM 9.3 mg/dL (8.4-10.2); CREATININE SERUM 1.1 mg/dL (0.6-1.4); GLOM FILT RATE Estimated 44.5 mL/min (>60); POTASSIUM 4.1 mmol/L (3.5-5.1)
== END | disposition home or self-care (01) ==
LOC: CLAB 11:56
PROVIDERS: Internal Medicine Cardiovascular Disease
DX: I25.10 Atherosclerotic heart disease of native coronary artery without angina pectoris (principal); I48.0 Paroxysmal atrial fibrillation
CPT/HCPCS: 36415; 80048

== ENCOUNTER → 2017-07-07 | Outpatient (CLI) | payer MEDICARE, BC ==
--- NOTE | ~2017-07-07 | CT98 ---
[facility] A Service of [facility] RADIOLOGY TEXT RESULTS PATIENT: DIANE ORDONEZ LOCATION: [facility] : [birth year] UNIT #: [id number] AGE: [address]: SILVER SALCIDO DO SEX: F ORDER DR: [id number] [place] [id number] O MR#: [id number] Acc #: [id number] NAME: DIANE ORDONEZ : 1925 SEX: F STUDY DATE/TIME: 07/07/2017 12:59 UNIT: [facility] ROOM: STUDY DESCRIPTION: CT Lumbar Spine Wo Cont Attending Physician: Silver Salcido D.O. Referring Physician: Silver Salcido D.O. Ordering Physician: Silver Salcido D.O. Primary Care Physician: Silver Salcido D.O. MEDICAL IMAGING REPORT This report is preliminary unless electronic signature is present. EXAM Lumbar spine CT, no contrast, date 07/07/2017. PROCEDURE Axial unenhanced lumbar CT with multiplanar reformats. COMPARISON None CLINICAL HISTORY History of osteoporosis and prior compression fractures 7-8 years ago with mid and low back pain for several years, progressively worsening. This CT exam was performed with one or more of the following radiation dose reduction techniques: automatic exposure control, adjustment of mA and/or kV according to patient size, and iterative reconstruction. FINDINGS There is a loss of lordosis and dextroscoliosis, but no fracture or bone erosion or destruction. The paraspinous soft tissues are unremarkable. At L1-2, disc and endplate change causes mild canal stenosis and borderline, if any, bilateral foraminal narrowing. At L2-3, disc and endplate change causes mild canal stenosis and borderline to mild right and left foraminal stenosis. At L3-4, there is a disc bulge and facet arthropathy, again with borderline to mild canal stenosis and mild right and mild or vwqq-fy-hnvlmago left foraminal stenosis. At 04/05, disc and endplate change and facet arthropathy cause moderate canal stenosis and moderate right and moderate to severe left foraminal [facility] A Service of [facility] RADIOLOGY TEXT RESULTS PATIENT: DIANE ORDONEZ LOCATION: [facility] : [birth year] UNIT #: [id number] AGE: [address]: SILVER SALCIDO DO SEX: F ORDER DR: jess. At 02/23, there is degenerative change, but no canal stenosis, with moderate right and minimal left foraminal stenosis. IMPRESSION Degenerative changes without fracture or other acute abnormality. Please see above for level by level details regarding canal and foraminal narrowing. Dictated by... Karl Blevins M.D. THIS IS AN ELECTRONICALLY VERIFIED REPORT Karl Blevins M.D. at 07/17/2017 7:34 AM JOSE LUIS/tracie TD: 07/08/2017 19:15 JOB #: [id number] MEDICAL IMAGING REPORT Page 1 of 1
--- NOTE | ~2017-07-07 | BD1 ---
[facility] A Service of [facility] & [facility] RADIOLOGY TEXT RESULTS PATIENT: DIANE ORDONEZ LOCATION: [facility] : [birth year] UNIT #: [id number] AGE: [address]: SILVER SALCIDO DO SEX: F ORDER DR: [id number] [place] [id number] O MR#: [id number] Acc #: [id number] NAME: DIANE ORDONEZ : 1925 SEX: F STUDY DATE/TIME: 07/07/2017 12:45 UNIT: [facility] ROOM: STUDY DESCRIPTION: Dexa Bone Dens 1+ Site Attending Physician: Silver Salcido D.O. Referring Physician: Silver Salcido D.O. Ordering Physician: Silver Salcido D.O. Primary Care Physician: Silver Salcido D.O. MEDICAL IMAGING REPORT This report is preliminary unless electronic signature is present. EXAM Bone density scan, 07/07/2017. HISTORY Osteoporosis. FINDINGS Bone density scanning performed in bilateral proximal femurs and in the right forearm in this [age]-year-old 140 pound female. The patient gives a history of prior back surgery. No prior studies for comparison. Proximal left femur: Total bone mineral density 0.949 g/cm2 for a T-score of 0.5 standard deviations below mean for reference population normal young individuals and 2.1 standard deviations above the mean for age-matched population. In the left femoral neck specifically the bone mineral density is 0.930 g/cm2 for a T-score 0.8 standard deviations below the mean for reference population normal young individuals and Z-score 1.8 standard deviations above the mean for age-matched population. In the right proximal femur total bone mineral density is 0.972 g/cm2 for a T-score of 0.3 standard deviations below mean for reference population normal young individuals and Z-score 2.3 standard deviations above the mean for age-matched population. In the right femoral neck specifically the bone marrow density is 0.986 g/cm2 for a T-score of 0.4 standard deviations below mean for reference population normal young individuals and Z-score 2.2 standard deviations above the mean for age-matched population. In the right forearm radius 33% station the bone mineral density is 0.704 g/cm2 for a T-score 2.1 standard deviations below the mean for reference population normal young individuals and Z-score 1.5 standard deviations above the mean for age-matched population. IMPRESSION [facility] A Service of [facility] RADIOLOGY TEXT RESULTS PATIENT: DIANE ORDONEZ LOCATION: [facility] : [birth year] UNIT #: [id number] AGE: [address]: SILVER SALCIDO DO SEX: F ORDER DR: 1. Osteopenia in the right forearm radius 33% station. Patient felt to be at increased risk for fracture. Treatment options may be considered. Continued surveillance is recommended. Dictated by... Spencer Rain M.D. THIS IS AN ELECTRONICALLY VERIFIED REPORT Spencer Rain M.D. at 07/08/2017 2:25 PM Stephon TD: 07/08/2017 07:22 JOB #: [id number] MEDICAL IMAGING REPORT Page 1 of 1
== END | disposition home or self-care (01) ==
LOC: SRAD 12:04
DX: M80.08XA Age-related osteoporosis with current pathological fracture, vertebra(e), initial encounter for fracture (principal); M54.5 Low back pain; G89.29 Other chronic pain; M48.50XS Collapsed vertebra, not elsewhere classified, site unspecified, sequela of fracture; M85.831 Other specified disorders of bone density and structure, right forearm
CPT/HCPCS: 72131; 77080